=== PATIENT | male | born 1930 | race Caucasian/White ===

== ENCOUNTER 2017-03-06 16:18 | Emergency (ER) | payer OTHER, MEDICARE ==
[2017-03-06] MEDS ORDERED: SILVER NITRATE APPLICATOR 1 EACH TOPICAL ONE ×2 (16:31→16:49)
[2017-03-06] MEDS ORDERED: OXYMETAZOLINE 0.05% 15 ML NASAL SPRAY ONE (16:32)
--- NOTE | 2017-03-06 16:43 | PDOC ---
Epistaxis / Nasal FB - General Chief Complaint: Nasal/Mouth Problem /Injury Stated Complaint: NOSE BLEED Date Seen by Provider: 03/06/17 Time Seen by Provider: 16:23 Source: POSITIVE: Patient Exam Limitations: POSITIVE: No limitations Nurse's Notes Reviewed & Considered: Yes - History of Present Illness Initial Comments: Singh is an 86-year-old male who presents to the emergency department for evaluation of nasal bleeding. Patient reports her last few days he has had some bleeding from the right nose. Today about an hour or so to get worse was bleeding heavily. Patient denies dizziness, chest pain, shortness breath, nausea or vomiting. Patient denies any trauma. He has had history of nasal bleeding in the past. - Patient Allergies Allergies/Adverse Reactions: Allergies Allergy/AdvReac Type Severity Reaction Status Date / Time No Known Allergies Allergy Verified 03/06/17 16:42 - Patient Home Medications Home Medications: Home Medications Aspirin [Aspir 81] 81 mg PO DAILY 09/21/16 Past Medical History - heen HEENT History: Other (please comment) Additional HEENT History: HISTORY OF BLOODY NOSES LAST ONE 4 YEARS AGO Cardiovascular History: Other (please comment) Additional Cardiovasular History: STATES HE WAS TOLD HE HAD AN ENLARGED HEART Respiratory History: Denies History Gastrointestinal History: Denies History Genitourinary History: Denies History Endocrine History: Denies History Musculoskeletal History: Denies History Neurological History: Denies History Blood Disorders: Denies History Psychiatric History: Denies History History of Sexually Transmitted Diseases: No Cancer History: Denies History History of MDRO: No History of Other Communicable Diseases: No Alcohol Use: None Substance Use Type: None Previous Surgical History: No Significant Family History: No pertinent family hx Past Medical History Reviewed: Reviewed - No Changes ROS - Limitations ROS Limitations: No Limitations Constitution: REPORTS: Denies Symptoms Cardiovascular: REPORTS: Denies Cardiac Symptoms Respiratory: REPORTS: Denies Resp Symptoms Neurological: REPORTS: Denies Neuro Symptoms Gastrointestinal: REPORTS: Denies GI Symptoms Endocrine: REPORTS: Denies Symptoms Musculoskeletal: REPORTS: Denies MS Symptoms Genitourinary: REPORTS: Denies Symptoms Eyes: REPORTS: Denies Symptoms ENT: REPORTS: Nose Bleed Nose Complaint Exam - General Appearance General Appearance: POSITIVE: Alert, Cooperative, No Acute Distress - HEENT Head / Face: POSITIVE: Atraumatic Eyes: POSITIVE: Other (some drainage from right eye which is chronic and undergoing treatment) Nose: POSITIVE: Other (epistaxis from right near. Left ear clear.) Oropharynx: POSITIVE: Other (small amount of swallowed blood.) - Neurological / Psychological Neurological: POSITIVE: Affect Apporpriate - Neck Neck: POSITIVE: Normal Inspection - Respiratory Respiratory: POSITIVE: No Respiratory Distress, Breath Sounds Normal - Cardiovascular Cardiovascular: POSITIVE: Regular Rate and Rhythm, Heart Sounds Normal - Abdomen Abdomen: Soft: (All Quadrants), Normal Bowel Sounds: (All Quadrants), Denies Tenderness: (All Quadrants) - Skin Skin: POSITIVE: Normal Color Nose Complaint Progress - Patient's Progress MDM / ED Course: Singh is an 86-year-old male who presents to the emergency department with nosebleed. Vital signs are unremarkable. Examination demonstrates well- appearing male bleeding from the right nose. On deeper examination I was able to localize the bleeding vessel and applied silver nitrate cautery to that site. Hemostasis was obtained. Patient tolerated procedure well without complication. He was monitored in the emergency department and had no further bleeding. Patient Care Time - Estimated PCT Patient Care Time (In Minutes): 20 Vital Signs - Recent Vital Signs Vital Signs: Vital Signs (Last 8 hours) Temp Pulse Resp BP Pulse Ox 03/06/17 16:18 96.1 F L 96 20 176/108 93 - VS Reviewed Vital Signs Reviewed: Yes Discharge Clinical Impression: Anterior epistaxis Discharge Disposition: Discharged to Home Condition: Good Patient Instructions Given at Discharge: Nosebleed (ED) Additional Instructions: Thank you for coming to the emergency department. Please avoid placing anything in the nose or blowing the nose vigorously. If the nose starts bleeding again please apply pressure for 20 minutes. If still bleeding after 20 minutes return to the emergency department for reevaluation.
[2017-03-06] MEDS ORDERED: OXYMETAZOLINE 0.05% 15 ML NASAL SPRAY ENOS ONE (16:49)
[2017-03-06 16:57] VITALS: RESP 20; TEMP 96.1
== END 2017-03-06 17:26 | disposition home or self-care (01) ==
LOC: ER 16:18
DX: R04.0 Epistaxis (principal)
CPT/HCPCS: 99282

== ENCOUNTER → 2017-05-17 | Outpatient (CLI) | payer OTHER, MEDICARE ==
--- NOTE | 2017-05-17 13:40 | EKG ---
[address] [address] Measurements Intervals [place] Rate: 80 P: OK: 0 QRS: 63 QRSD: 89 T: 79 QT: 372 QTc: 409 Interpretive Statements ATRIAL FIBRILLATION NONSPECIFIC ST & T-WAVE ABNORMALITY ABNORMAL RHYTHM ECG No previous ECG available for comparison Electronically Signed On 05-18-17 08:35:38 MDT by Fransico Erickson MD [email or web address]
--- NOTE | 2017-05-17 13:50 | DI ---
PA /LATERAL CHEST X-RAY, 05/17/2017 1:26 PM : Clinical History: Chest pain. Shortness of breath. Previous Exam: None at this facility. On the PA projection, the patient took a very shallow inspiration. There is no acute soft tissue or b andrei abnormality. There is cardiomegaly without CHF. Lungs are clear. Mediastinal structures are carey l. There are no pulmonary nodules. Readin. There is no acute infiltrate or effusion. 2. Cardiomegaly without CHF.
[2017-05-17 14:06] LABS: HEMATOCRIT 35.5 % (42.0-52.0); MEAN CORPUSCULAR HEMOGLOBIN 19.9 PG (27-31); MEAN CORPUSCULAR VOLUME 64.3 FL (80-90); MEAN PLATELET VOLUME 9.1 FL (7.4-12.2); RED BLOOD COUNT 5.52 10^6/uL (4.70-6.10)
[2017-05-17 14:21] LABS: BUN/CREATININE RATIO 18.18 (6-20); CALCIUM 8.6 mg/dL (8.7-10.7)
[2017-05-17 14:38] LABS: CREATINE KINASE MB 3.23 NG/ML (0.00-5.00); TROPONIN I 0.013 ng/mL (< 0.040)
== END ==
LOC: LAB 13:12
PROVIDERS: ATTEND Obstetrics & Gynecology Gynecology
DX: R07.9 Chest pain, unspecified (principal); R06.02 Shortness of breath; I51.7 Cardiomegaly; I48.91 Unspecified atrial fibrillation
CPT/HCPCS: 36415; 71020; 80053; 82550; 82553; 84443; 84484; 85027; 93005; 93010